=== PATIENT | male | born 1995 | race Caucasian/White ===

== ENCOUNTER 2017-07-13 11:09 | Emergency (ER) | payer SELFPAY ==
--- NOTE | 2017-07-13 11:57 | RADIOLOGY IMAGING REPORT ---
FACILITY: [facility] - [place] PATIENT NAME: Rafa Nicholas : 1995 MR: [id number] V: [id number] EXAM DATE: ORDERING PHYSICIAN: KATIE FRANKS TECHNOLOGIST: Location: [facility] [place] Patient: Rafa Nicholas : 1995 Visit/Account:[id number] Date of Sevice: 07/13/2017 Study: Frontal and lateral views of the chest Indication: Cough, shortness of breath, chest pain Comparison study: None Findings: PA and lateral views of the chest demonstrate no evidence of acute infiltrate. There is no evidence of pleural effusion. There is no evidence of pneumothorax. The mediastinal, cardiac, and diaphragmatic contours are unremarkable. The visualized bony structures are unremarkable. IMPRESSION: Unremarkable chest. Report Dictated By: Thad Morrison at 07/13/2017 11:53 AM Report E-Signed By: Thad Morrison at 07/13/2017 11:53 AM WSN:[id number]
[2017-07-13 12:00] VITALS: BP 122/70
[2017-07-13] MEDS ORDERED: IBUP600T22 PO (12:00)
[2017-07-13] MEDS ORDERED: ALBU8.5H IH (12:00)
--- NOTE | 2017-07-13 12:01 | ER Report ---
History and Physical Time Seen By MD: 11:15 Hx. of Stated Complaint: PATIENT REPORTS THAT HE NEEDS A NOTE TO GO BACK TO WORK. HE HAS BEEN OFF WORK FOR 1 WEEK BECAUSE OF A COUGH HPI/ROS This is an otherwise healthy 21-year-old male who presents to the emergency department with 1 week of cough and URI symptoms. He recently moved to [place] from [facility] approximately 2 months ago. Instead he has had an intermittent cough in the morning. States this week he had some blood-tinged sputum. He's never had a history of TB. No chest pain, no shortness of breath. He has not been to work for the past week due to the symptoms. He has only been taking Tylenol for the symptoms. He also complains of a migraine headache. It is not the worse headache of his life. He does suffer from frequent migraine headaches, and states this headache is like his usual headaches. Allergies: Coded Allergies: No Known Drug Allergies (Unverified , 07/13/17) Home Meds Active Scripts Albuterol Sulfate 90 Mcg/Act (PROAIR HFA 90 MCG/ACT) 8.5 Gm Hfa.aer.ad, 2 PUFF IH Q4-6H Y for COUGH for 7 Days, #1 INHALER Prov:KATIE FRANKS MD 07/13/17 Ibuprofen (IBUPROFEN) 600 Mg Tablet, 1 TAB PO Q6H for 14 Days, #30 TAB Prov:KATIE FRANKS MD 07/13/17 Reviewed Nurses Notes: Yes Old Medical Records Reviewed: Yes Hx Smoking: No Smoking Status: Never Smoker Hx Substance Use Disorder: No Hx Alcohol Use: No Constitutional Vital Sign - Last 24 Hours 07/13/17 11:14 Temp 98.2 Pulse 92 Resp 20 B/P (MAP) 163/87 Pulse Ox 92 O2 Delivery Room Air Physical Exam General Appearance: The patient is alert, has no immediate need for airway protection and no current signs of toxicity. Eyes: Pupils equal and round no injection. Respiratory: Chest is non tender, lungs are clear to auscultation. Cardiac: regular rate and rhythm Gastrointestinal: Abdomen is soft and non tender, no masses, bowel sounds normal. Neck: Neck is supple and non tender. Extremities have full range of motion and are non tender. Skin: No rashes or lesions. DIFFERENTIAL DIAGNOSIS: After history and physical exam differential diagnosis was considered for shortness of breath including but not limited to pulmonary infectious process, COPD, asthma, pulmonary embolus and congestive heart failure. Medical Decision Making EKG/Imaging Imaging X-ray: CXR was obtained. I viewed the images myself on the PACS system. My interpretation of the images is: no evidence of TB, no infiltrate, no PTX, no pulmonary edema, no infiltrate. The radiologist interpretation had no clinically significant variation from this interpretation. ED Course/Re-evaluation ED Course This is a 21-year-old otherwise healthy male with one-week history of a cough and URI symptoms. He has no history of TB or high-risk TB exposures. He moved to [place] from [facility] approximately 2 months ago. He presented with hemoptysis. I think his hemoptysis is a combination of bronchitis as well as getting acclimated to altitude. His chest x-ray is normal. I do not think this is from a PE. He was given 1 dose of Decadron in the ED. I wrote him prescription for an albuterol inhaler as well as ibuprofen for his symptoms. I also encouraged him to take Mucinex for his URI as well as Excedrin Migraine for the headache that he has right now due to coughing. Decision to Disposition Date: Jul 13, 2017 Decision to Disposition Time: 11:58 Depart Departure Latest Vital Signs Vital Signs Date Time Temp Pulse Resp B/P (MAP) Pulse Ox O2 Delivery O2 Flow Rate FiO2 07/13/17 11:14 98.2 92 20 163/87 92 Room Air Impression: Primary Impression: Bronchitis Condition: Improved Disposition: HOME OR SELF-CARE New Scripts Albuterol Sulfate 90 Mcg/Act (PROAIR HFA 90 MCG/ACT) 8.5 Gm Hfa.aer.ad 2 PUFF IH Q4-6H Y for COUGH for 7 Days, #1 INHALER Prov: KATIE FRANKS MD 07/13/17 Ibuprofen (IBUPROFEN) 600 Mg Tablet 1 TAB PO Q6H for 14 Days, #30 TAB Prov: KATIE FRANKS MD 07/13/17 Additional Instructions: Also try Mucinex as well as Excedrin migraine for your other symptoms. KATIE FRANKS MD Jul 13, 2017 12:01
[2017-07-13] MEDS ORDERED: DEXAMETHASONE 4 MG TAB PO ONE (12:05)
== END 2017-07-13 12:12 | disposition home or self-care (01) ==
LOC: ER 11:15
DX: J40 Bronchitis, not specified as acute or chronic (principal)
CPT/HCPCS: 71046; 99283; J8540

== ENCOUNTER 2017-07-18 09:50 | Emergency (ER) | payer OTHER ==
[~2017-07-18 09:50] MED LIST: ALBU8.5H IH; IBUP600T22 PO
--- NOTE | 2017-07-18 10:01 | ER Report ---
History and Physical Time Seen By MD: 10:01 Hx. of Stated Complaint: PATIENT CUT HIS RIGHT THUMB AT WORK; LACERATION IS BY THE NAIL HPI/ROS CHIEF COMPLAINT: Right 1st digit laceratio HISTORY OF PRESENT ILLNESS: 21-year-old male here with a small laceration to the right 1st digit distal tip. 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 No other injury is noted at time of evaluation. REVIEW OF SYSTEMS: Constitutional: No fever, no chills. Musculoskeletal: NV intact Skin: + Small laceration to the tip of the right 1st digit Neurological: No weakness or paresthesias Allergies: Coded Allergies: No Known Drug Allergies (Unverified , 07/18/17) Home Meds Active Scripts Ibuprofen (IBUPROFEN) 600 Mg Tablet, 1 TAB PO Q6H for 14 Days, #30 TAB Prov:KATIE FRANKS MD 07/13/17 Discontinued Scripts Albuterol Sulfate 90 Mcg/Act (PROAIR HFA 90 MCG/ACT) 8.5 Gm Hfa.aer.ad, 2 PUFF IH Q4-6H Y for COUGH for 7 Days, #1 INHALER Prov:KATIE FRANKS MD 07/13/17 Past Medical/Surgical History Patient has a history significant for migraines Reviewed Nurses Notes: Yes Old Medical Records Reviewed: Yes Hx Smoking: No Smoking Status: Never Smoker Hx Substance Use Disorder: No Hx Alcohol Use: No Constitutional Vital Sign - Last 24 Hours 07/18/17 07/18/17 07/18/17 07/18/17 09:50 09:54 09:55 10:00 Temp 98.3 Pulse ??? 86 Resp 19 B/P (MAP) 135/90 (105) 135/90 127/84 (98) Pulse Ox 97 O2 Delivery Room Air 07/18/17 07/18/17 07/18/17 07/18/17 10:05 10:15 10:20 10:30 Pulse 92 90 B/P (MAP) 131/84 (100) 127/75 (92) Pulse Ox 94 94 07/18/17 10:35 Pulse ??? Pulse Ox 96 Physical Exam General Appearance: The patient is alert, has no immediate need for airway protection and no signs of toxicity. [ ] Neurological: no acute deficits Skin: small laceration to tip of right 1st digit, hemostasis intact Musculoskeletal: No weakness Medical Decision Making ED Course/Re-evaluation ED Course Patient is a 21-year-old male here with a small laceration to the distal aspect of the 1st digit. Hemostasis was achieved prior to arrival. Upon evaluation of the digit there was no involvement of the nailbed. The wound margins were clean and there is no indication for suturing or further intervention. The finger was rinsed, bacitracin was applied and a sterile bandage was applied. Tetanus was updated. She was stable at time of discharge. Decision to Disposition Date: Jul 18, 2017 Decision to Disposition Time: 10:24 Depart Departure Latest Vital Signs Vital Signs Date Time Temp Pulse Resp B/P (MAP) Pulse Ox O2 Delivery O2 Flow Rate FiO2 07/18/17 10:35 ??? 96 07/18/17 10:30 127/75 (92) 07/18/17 09:55 98.3 19 Room Air Impression: Primary Impression: Laceration of finger Patient Instructions: Finger Laceration (ED) Additional Instructions: Please keep finger clean. You may rinse with warm water and soap NARESH SCHILLING DO Jul 18, 2017 10:01
[2017-07-18] MEDS ORDERED: DIPHTH/TETANUS/ACEL. PERTUSSIS IM ONLY ONE (10:05)
[2017-07-18 10:30] VITALS: BP 127/75
== END 2017-07-18 10:39 | disposition home or self-care (01) ==
LOC: ER 09:57
DX: S61.210A Laceration without foreign body of right index finger without damage to nail, initial encounter (principal); W26.9XXA Contact with unspecified sharp object(s), initial encounter; Y99.0 Civilian activity done for income or pay
CPT/HCPCS: 90471; 90715; 99283